=== PATIENT | male | born 1985 | race Caucasian/White ===

== ENCOUNTER 2020-08-24 02:58 | Emergency (ER) | payer MEDICAID ==
[~2020-08-24] VITALS: Ht 167.6 cm; Wt 102.5 kg
[2020-08-24 03:07] VITALS: Ht 167.6 cm; Wt 102.5 kg
[2020-08-24 05:01] VITALS: BP 118/80
== END 2020-08-24 05:01 | disposition home or self-care (01) ==
LOC: ED 02:58
DX: S61.032A Puncture wound without foreign body of left thumb without damage to nail, initial encounter (principal); X58.XXXA Exposure to other specified factors, initial encounter; Y93.89 Activity, other specified; Y92.89 Other specified places as the place of occurrence of the external cause; Y99.8 Other external cause status
CPT/HCPCS: J0696